=== PATIENT | female | born 1955 | race Caucasian/White ===

== ENCOUNTER 2018-11-04 07:11 | Day surgery (SDC) | payer MEDICARE, OTHER ==
[~2018-11-04] VITALS: Ht 172.7 cm; Wt 58.4 kg
[~2018-11-04 07:11] MED LIST: BUPIVACAINE/PF-EPI 0.5% 1:200K ONE; LAMO150T2 PO; LEVO50TA5 PO; MULT-717 PO; QUET100T PO; SUGAMMADEX 200 MG/2 ML IVPush ONE
[2018-11-04] MEDS ORDERED: LACTATED RINGERS 1,000 ML IV SCH (07:27)
[2018-11-04] MEDS ORDERED: PROPOFOL 10 MG/ML, 20ML ONE ×2 (09:16→09:25)
[2018-11-04] MEDS ORDERED: ROCURONIUM 10MG/ML,5ML ONE (09:16)
[2018-11-04] MEDS ORDERED: FENTANYL PF 100 MCG/2ML ONE ×3 (09:16→10:32)
[2018-11-04] MEDS ORDERED: CEFAZOLIN 1,000 MG ONE (09:20)
[2018-11-04] MEDS ORDERED: ROCURONIUM 10 MG/ML,10ML ONE (09:20)
[2018-11-04] MEDS ORDERED: LIDOCAINE-MPF 2% ,5ML ONE (09:20)
[2018-11-04] MEDS ORDERED: MEPERIDINE/PF 25MG/0.5ML IVPush PRN (10:00)
[2018-11-04] MEDS ORDERED: HYDROmorphone 2 MG/ML, 1ML IVPush PRN (10:00)
[2018-11-04] MEDS ORDERED: OXYcodone 5 MG/5 ML ORAL.SOL UDC PO PRN (10:00)
[2018-11-04] MEDS ORDERED: MORPHINE SULFATE 4 MG/ML, 1ML IVPush PRN (10:00)
[2018-11-04] MEDS ORDERED: HYDROcodone/APAP 7.5-325MG/15ML UDC PO PRN (10:00)
[2018-11-04] MEDS ORDERED: OXYcodone 5 MG/5 ML ORAL.SOL UDC ONE (10:12)
[2018-11-04] MEDS: FENTANYL PF 100 MCG/2ML IV PRN ×3 (10:30→10:55)
== END 2018-11-04 13:35 | disposition home or self-care (01) ==
LOC: OUT 07:11
PROVIDERS: ATTEND Surgery
DX: K43.6 Other and unspecified ventral hernia with obstruction, without gangrene (principal); E03.9 Hypothyroidism, unspecified; Z90.710 Acquired absence of both cervix and uterus; Z98.890 Other specified postprocedural states; Z72.89 Other problems related to lifestyle
CPT/HCPCS: 49561; J0690; J2704; J3010; J3490; J7120